=== PATIENT | female | born 1965 | race Caucasian/White ===

== ENCOUNTER 2017-12-09 12:35 | Emergency (ER) | payer SELFPAY | END 2017-12-09 15:20 | disposition left against medical advice (07) | LOC: FTE 12:35 | DX: Z53.21 Procedure and treatment not carried out due to patient leaving prior to being seen by health care provider (principal) ==

== ENCOUNTER 2018-04-07 07:19 | Emergency (ER) | payer OTHER ==
[2018-04-07] MEDS ORDERED: KETOROLAC 30 MG INJ IM (08:15)
[2018-04-07] MEDS: KETOROLAC 30 MG INJ IV (08:35)
[2018-04-07 08:41] LABS: ADD MAN DIFF? NO
[2018-04-07 08:47] LABS: WHITE BLOOD COUNT 5.3 10^3/ul (4.8-10.8)
[2018-04-07 08:47] LABS: BASOPHILS % 0.6 % (0.0-2.0); EOSINOPHILS # 0.1 10^3/ul (0.0-0.5); EOSINOPHILS % 2.6 % (0.0-7.0); HEMATOCRIT 45.2 % (37.0-47.0); HEMOGLOBIN 14.5 g/dl (12.0-16.0); LYMPHOCYTES # 1.7 10^3/ul (0.8-2.9); LYMPHOCYTES % 31.5 % (15.0-51.0); MEAN CORPUSCULAR HGB CONC 32.1 g/dl (32.0-37.0); MEAN CORPUSCULAR VOLUME 90.4 fl (82.0-101.0); MEAN PLATELET VOLUME 8.6 fl (7.4-10.4); MONOCYTE # 0.4 10^3/ul (0.3-0.9); MONOCYTES % 8.1 % (0.0-11.0); PLATELET COUNT 207 10^3/UL (140-415); RED CELL DISTRIBUTION WIDTH 12.2 % (11.5-14.5)
[2018-04-07 09:07] LABS: ALANINE AMINOTRANSFERASE 15 IU/L (13-69); ALBUMIN/GLOBULIN RATIO 1.17; ALKALINE PHOSPHATASE 116 IU/L (42-121); ANION GAP 8 (5-13); ASPARTATE AMINO TRANSFERASE 25 IU/L (15-46); BILIRUBIN,INDIRECT 0.3 mg/dl (0-1.1); BILIRUBIN,TOTAL 0.3 mg/dl (0.2-1.3); BLOOD UREA NITROGEN 18 mg/dl (7-20); CALCIUM 8.7 mg/dl (8.4-10.2); CARBON DIOXIDE 29 mmol/L (21-31); CHLORIDE 103 mmol/L (97-110); CREATININE 0.54 mg/dl (0.44-1.00); Estimated GFR > 60 mL/min (>60); GLUCOSE 98 mg/dl (70-220); POTASSIUM 4.4 mmol/L (3.5-5.1); SODIUM 140 mmol/L (135-144); TOTAL PROTEIN 7.4 g/dl (6.1-8.1)
[2018-04-07] MEDS: morphine 4 MG/ML VIAL IV (09:35)
[2018-04-07] MEDS: ONDANSETRON 4 MG INJ IV (09:35)
== END 2018-04-07 11:58 | disposition home or self-care (01) ==
LOC: FTE 07:19
DX: N64.4 Mastodynia (principal)
CPT/HCPCS: 36415; 76642; 80053; 81025; 85025; 96374; 96375; 99285-25